=== PATIENT | female | born 1980 | race Caucasian/White ===

== ENCOUNTER → 2019-07-17 | Outpatient (CLI) | payer BC ==
[~2019-07-17] MED LIST: CELEXA40 MG; FLEXERIL PO; IBUPROFEN 800800 MG PO; LEVOTHYROXIN0.137 M1 PO; LIORESAL 10 MG10 MG; NORCO 5-325 TA1 EAC1 PO; NORCO 5-325 TA1 EACH PO; ONDANSETRON HCL4 M2 PO; PHENERGAN 25 MG25 M1 PO; PREDNISONE 20 M20 M1 PO; PROAIR HFA8.5 GM INH; ROBAXIN500 MG; SKELAXIN 800 M800 M1; SYNTHROID PO; SYNTHROID125 MCG; VICODIN 5-5001 EACH; ZOFRAN ODT4 MG SUBLING
== END ==
LOC: M.MRI 07-01 11:14
DX: M50.122 Cervical disc disorder at C5-C6 level with radiculopathy (principal); M48.02 Spinal stenosis, cervical region; M50.10 Cervical disc disorder with radiculopathy, unspecified cervical region; M46.02 Spinal enthesopathy, cervical region; M25.78 Osteophyte, vertebrae

== ENCOUNTER → 2019-08-10 | Outpatient (CLI) | payer BC | LOC: M.PC 04:30 | DX: M47.22 Other spondylosis with radiculopathy, cervical region (principal); M50.30 Other cervical disc degeneration, unspecified cervical region; M79.601 Pain in right arm; Z98.890 Other specified postprocedural states; Z88.1 Allergy status to other antibiotic agents; Z88.2 Allergy status to sulfonamides; Z88.8 Allergy status to other drugs, medicaments and biological substances; Z79.899 Other long term (current) drug therapy ==

== ENCOUNTER → 2019-09-07 | Outpatient (CLI) | payer BC ==
[~2019-09-07] MED LIST changes: +HYDROCODON-ACE1 EAC8 PO; -LEVOTHYROXIN0.137 M1 PO; +SYNTHROID125 MC1 PO
== END ==
LOC: M.PT 08-14 07:00 → M.PC 02:34
PROVIDERS: ATTEND Physical Medicine & Rehabilitation
DX: M47.812 Spondylosis without myelopathy or radiculopathy, cervical region (principal); M50.30 Other cervical disc degeneration, unspecified cervical region

== ENCOUNTER → 2019-11-11 | Outpatient (CLI) | payer BC | LOC: M.PC 08:00 | PROVIDERS: ATTEND Physical Medicine & Rehabilitation | DX: M47.22 Other spondylosis with radiculopathy, cervical region (principal); M50.10 Cervical disc disorder with radiculopathy, unspecified cervical region; M48.02 Spinal stenosis, cervical region; M79.601 Pain in right arm ==

== ENCOUNTER → 2020-01-25 | Outpatient (CLI) | payer BC | LOC: M.PC 07:34 | PROVIDERS: ATTEND Physical Medicine & Rehabilitation | DX: M47.22 Other spondylosis with radiculopathy, cervical region (principal); M50.30 Other cervical disc degeneration, unspecified cervical region ==